=== PATIENT | female | born 1945 | race Caucasian/White ===

== ENCOUNTER → 2018-09-15 | Outpatient (CLI) | payer MEDICARE ==
--- NOTE | 2018-09-15 14:10 | PCVCIMAG ---
APPROVED REPORT Indications Bruit Risk Factors Hyperlipidemia Doppler Spectral Velocity Analysis PSV / EDVPSV / EDV ECA (R) 96 / 9 cm/sECA (L) 81 / 8 cm/s dICA (R) 65 / 16 cm/sdICA (L) 65 / 19 cm/s Sharla (R) 62 / 19 cm/smICA (L) 68 / 19 cm/s pICA (R) 56 / 17 cm/spICA (L) 61 / 18 cm/s Bulb (R) 52 / 13 cm/sBulb (L) 68 / 17 cm/s dCCA (R) 66 / 16 cm/sdCCA (L) 91 / 21 cm/s mCCA (R) 68 / 9 cm/smCCA (L) 87 / 17 cm/s Vert (R) 44 / 12 cm/sVert (L) 57 / 18 cm/s ICA/CCA 0.98ICA/CCA 0.75 Basic Measurements Blood Pressure: Pulses: Right Left RightLeft Brachial(Sitting) 128/43blKx098/68mmHgTemporal Real Time B-Mode Imaging Vert. (R)AntegradeVert. (L)Antegrade Findings The right carotid bulb has mild plaque. The right proximal internal carotid artery shows no significant stenosis. The right common carotid artery shows no significant stenosis. The right external carotid artery shows no significant stenosis. The left carotid bulb has mild plaque. The left proximal internal carotid artery shows no significant stenosis. The left common carotid artery shows no significant stenosis. The left external carotid artery shows no significant stenosis. Conclusion 1. Mild bilateral plaquing without significant stenosis. 2. Antegrade vertebral flow.
--- NOTE | 2018-09-15 16:16 | PCVCIMAG ---
APPROVED REPORT Study performed: 09/15/2018 13:50:06 Exam: Stress Echocardiogram Indication: elevated calcium score, htn, hlp Patient Location: Echo lab Stress Nurse: Josselyn Gilmore RN Status: routine Ht: 5 ft 0 in HR: 69 bpm BP: 128/68 mmHg Rhythm: NSR Procedure The patient underwent an Exercise Stress Test using the Adrián Protocol. Blood pressure, heart rate, and EKG were monitored. An Echocardiogram was performed by microelectronics technician in four stages in quad fashion. At peak stress, four selected images were obtained and placed side by side with resting images for comparison. Stress Test Details Stress Test: Exercise stress testing was performed using a Adrián protocol. HR Resting HR: 69 bpmMax Heart Rate (APMHR): 148 bpm Max HR Achieved: 153 bpmTarget HR (85% APMHR): 125 bpm % of APMHR: 103 Recovery HR: 82 bpm HR response to stress: Normal HR response to stress BP Resting BP: 128/68 mmHg Max BP: 168/80 mmHg Recovery BP: 140/80 mmHg BP response to stress: Normal blood pressure response to stress. ECG Resting ECG: Sinus Rhythm Stress ECG: Sinus Rhythm ST Change: Ischemic ST changes inferior and lateral Arrhythmia: PACs Recovery ECG: Sinus Rhythm Recovery ST Change: Ischemic ST changes inferior and lateral Recovery Arrhythmia: None Clinical Reason for Termination: Maximal effort Stress Symptoms: Dyspnea Exercise duration: 7 min 33 sec Highest Stage Achieved: Stage 3: 3.4 mph at 14% grade. Exercise capacity: 10.1 METs Overall Exercise Capacity for Age: Normal Scale: Active Angina Score: None Pre-Stress Echo The resting Echocardiogram showed normal left ventricular contractility with an estimated Ejection Fraction of about >55%. Normal wall motion in all segments on baseline images. Post-Stress Echo The stress Echocardiogram showed normal left ventricular contractility with an estimated Ejection Fraction of about 65%. Normal augmentation of wall motion in all segments on post stress images. Clinical No clinical or ECG evidence for ischemia. Conclusion Clinical Response: Non-ischemic Exercise Capacity: Average Stress ECG Response: Ischemic Stress Echo Images: Non-ischemic The left ventricle is normal in size and wall thickness in both the rest and stress images. Other Information Study Quality: Adequate <Conclusion> The left ventricle is normal in size and wall thickness in both the rest and stress images.
== END | disposition home or self-care (01) ==
LOC: PCVCIMAG 13:27
PROVIDERS: ATTEND Internal Medicine Cardiovascular Disease
DX: I65.23 Occlusion and stenosis of bilateral carotid arteries (principal); E78.5 Hyperlipidemia, unspecified; R93.1 Abnormal findings on diagnostic imaging of heart and coronary circulation; Z88.8 Allergy status to other drugs, medicaments and biological substances; Z88.1 Allergy status to other antibiotic agents
CPT/HCPCS: 93325; 93351; 93880